=== PATIENT | male | born 1985 | race Caucasian/White ===

== ENCOUNTER → 2017-01-07 | Outpatient (CLI) | payer BC ==
--- NOTE | 2017-01-07 10:02 | Diagnostic Imaging Report ---
INDICATION: Evaluation for metallic foreign body. FINDINGS: AP and lateral views of the skull reveal no intraorbital metallic foreign body to preclude MRI scan. Rounded density projects over the floor of the maxillary sinuses which are likely due to mucus retention cyst or polyps. IMPRESSION: No intraorbital metallic foreign body is seen to preclude MRI scanning. Dictated by: Dictated on workstation # [id number]
--- NOTE | 2017-01-07 12:24 | Diagnostic Imaging Report ---
PROCEDURE: MRI right joint upper extremity without contrast. TECHNIQUE: Multiplanar, multisequence non contrast-enhanced MRI of the right upper extremity was accomplished. INDICATION: Right shoulder pain. FINDINGS: There is no os acromiale or Hill-Sachs deformity. The acromioclavicular joint demonstrates mild capsular hypertrophy and small inferior osteophyte at the clavicular side which has a mild impression upon the myotendinous junction of the supraspinatus. There is minimal reactive fluid or edema in the subacromial subdeltoid bursa. Also minimal increased signal in the distal supraspinatus and infraspinatus tendons is seen which may relate to tendinosis or low-grade intrasubstance tear. No retracted or full-thickness tear. Scattered foci in the glenoid are seen superiorly likely related to bony islands. The glenoid labrum is not well evaluated on this exam without intra-articular contrast with no obvious abnormality seen. The long head of biceps tendon is in its groove. The subscapular tendon appears intact. The muscle bulk and signal around the shoulder is normal. IMPRESSION: 1. Mild acromioclavicular joint osteoarthritis with small inferior osteophytes that have an impression upon the myotendinous junction of the supraspinatus. 2. Slight increased signal within the distal supraspinatus and infraspinatus tendons suggestive of mild tendinosis or low-grade intrasubstance partial tear. Dictated by: Dictated on workstation # [id number]
== END ==
LOC: RAD 08:51
PROVIDERS: ATTEND Nurse Practitioner Family
DX: M25.511 Pain in right shoulder (principal); R93.8 Abnormal findings on diagnostic imaging of other specified body structures
CPT/HCPCS: 70250; 73221

== ENCOUNTER → 2018-09-24 | Outpatient (CLI) | payer BC, OTHER ==
--- NOTE | 2018-09-24 10:09 | Diagnostic Imaging Report ---
INDICATION: Evaluate for metal in the orbits prior to MRI scan. FINDINGS: Single view of the orbits demonstrates no metallic foreign bodies. Rounded densities are again seen in the floor of the maxillary sinus consistent with polyps or mucous retention cysts. IMPRESSION: No metallic foreign bodies present. Dictated by: Dictated on workstation # [id number]
--- NOTE | 2018-09-24 14:03 | Diagnostic Imaging Report ---
PROCEDURE: MRI right joint upper extremity without contrast. TECHNIQUE: Multiplanar, multisequence non contrast-enhanced MRI of the right upper extremity was accomplished. INDICATION: Right wrist pain. COMPARISON: Thumb MRI performed concurrently. FINDINGS: Soft tissues: A surface marker was placed on the palmar aspect at the base of the thumb to demarcate the area of maximal pain. This overlies the thenar musculature and there is no abnormal edema within the muscle or atrophy to indicate denervation injury or muscle strain. No soft tissue ganglion are present. Bones: No fracture or bone contusion. No osteonecrosis within the carpal bones. A type II lunate is present without associated chondromalacia. Tendons: Extensor and flexor tendons are normal. No abnormal thickening of the flexor retinaculum. Intrinsic ligaments: Assessment of the intrinsic ligaments of the wrist is mildly limited without intra-articular contrast. Allowing for this, the TFC complex appears intact. Scapholunate ligament, palmar and dorsal bands remain intact. Lunotriquetral ligament is grossly normal. IMPRESSION: 1. No soft tissue abnormality in the wrist to account for pain. 2. No fracture, bone contusion or osteonecrosis. Dictated by: Dictated on workstation # [id number]
--- NOTE | 2018-09-24 14:19 | Diagnostic Imaging Report ---
PROCEDURE: MRI right upper extremity without contrast. TECHNIQUE: Multiplanar, multisequence non contrast-enhanced MRI of the upper extremity was accomplished. INDICATION: Thumb pain. COMPARISON: Right wrist MRI performed concurrently. FINDINGS: Collateral ligaments: The radial and ulnar collateral ligaments of the thumb MCP are intact. Collateral ligaments of the thumb IP joint are also normal. Tendons: The flexor and extensor tendons of the thumb are intact and normal in position. Adductor aponeurosis is in normal position as well. Volar plates: The volar plates of the MCP and IP joint of the thumb are intact. Bones: No fracture or bone contusion. No degenerative arthritis. Soft tissues: No synovitis within the thumb. No tenosynovitis. No intramuscular edema within the thenar musculature of the hand to indicate strain or tear. IMPRESSION: 1. No osseous or soft tissue abnormality in the thumb to account for pain. Dictated by: Dictated on workstation # [id number]
== END ==
LOC: RAD 09:06
DX: M79.644 Pain in right finger(s) (principal); M25.531 Pain in right wrist; Z96.89 Presence of other specified functional implants
CPT/HCPCS: 73218; 73221